=== PATIENT | female | born 1940 | race Caucasian/White ===

== ENCOUNTER → 2024-04-12 12:41 | Outpatient (REF) | payer MEDICARE, SELFPAY | LOC: RAD 12:41 | PROVIDERS: ATTENDING PHYSICIAN Physician Assistant Medical | DX: S09.90XA Unspecified injury of head, initial encounter (principal); W19.XXXA Unspecified fall, initial encounter | CPT/HCPCS: 70140; 70450 ==

== ENCOUNTER → 2025-10-10 13:45 | Outpatient (REF) | payer MEDICARE, SELFPAY | LOC: EMG 13:45 | PROVIDERS: ATTENDING PHYSICIAN Pain Medicine Interventional Pain Medicine; FAMILY PHYSICIAN Physician Assistant Medical | DX: M54.16 Radiculopathy, lumbar region (principal); R20.0 Anesthesia of skin | CPT/HCPCS: 95886; 95911 ==